=== PATIENT | male | born 1975 | race Caucasian/White ===

== ENCOUNTER → 2017-06-05 | Outpatient (REF) ==
[~2017-06-05] MED LIST: AMLO-1 PO; ASPI-715 PO; ASPI81TA94 PO; DIP25 PO; OMEP-218 PO; PRE20 PO; PROM-110 PO
--- NOTE | 2017-06-05 11:21 | RADIOLOGY IMAGING REPORT ---
FACILITY: [facility] PATIENT NAME: Ta Doherty : 1975 MR: [id number] V: [id number] EXAM DATE: ORDERING PHYSICIAN: JEREMÍAS MEDLEY TECHNOLOGIST: Location: [facility] [place] Patient: Ta Doherty : 1975 Visit/Account:[id number] Date of Sevice: 06/05/2017 ELBOW 3 VIEWS RIGHT HISTORY: Elbow pain COMPARISON: None FINDINGS: No acute fracture or dislocation. No evidence of osteochondral lesion. No joint effusion. N o loose body. Soft tissues are normal. No significant degenerative changes. IMPRESSION: 1. Normal Report Dictated By: Clarke Farnsworth MD at 06/05/2017 11:17 AM Report E-Signed By: Clarke Farnsworth MD at 06/05/2017 11:18 AM WSN:[email or web address]
== END ==
LOC: RAD 09:45
PROVIDERS: ATTEND Nurse Practitioner
DX: M25.521 Pain in right elbow (principal)

== ENCOUNTER 2017-12-09 20:56 | Emergency (ER) | payer SELFPAY ==
[~2017-12-09 20:56] MED LIST changes: -ALBU8.5H IH; -CYCL10TA29 PO; -FLUO-202 PO; -FOLI-68 PO; -HYDR-4225 PO; -HYDR10TA20 PO; -IBUP600T22 PO; -MULT-1379 PO; -NICO-219 BC; -OMEP-125 PO; -THIA100T2 PO; -TRAM-420 PO; -TRAZ150T8 PO
[2017-12-09] MEDS ORDERED: DIPHTH/TETANUS/ACEL. PERTUSSIS IM ONLY ONE (21:05)
[2017-12-09 21:19] LABS: PLATELET COUNT, AUTOMATED 227 K/uL (150-450)
[2017-12-09] MEDS ORDERED: HYDR10TA20 PO (21:26)
[2017-12-09] MEDS ORDERED: FLUO-202 PO (21:26)
[2017-12-09] MEDS ORDERED: OMEP-125 PO (21:26)
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
[2017-12-09] MEDS ORDERED: TRAM-420 PO (23:01)
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
[2017-12-09 23:26] VITALS: BP 132/90
--- NOTE | 2017-12-09 23:26 | EKG ---
FACILITY: [facility] - [place] PATIENT NAME: KRISTIAN JOSHI : [id number] MR: [id number] V: [id number] EXAM DATE: ORDERING PHYSICIAN: DANII MURILLO TECHNOLOGIST: AUBREY Test Reason : TRAUMA Blood Pressure : / mmHG Vent. Rate : 074 BPM Atrial Rate : 074 BPM P-R Int : 166 ms QRS Dur : 094 ms QT Int : 418 ms P-R-T Axes : 039 080 062 degrees QTc Int : 463 ms Sinus rhythm No acute appearing findings When compared with ECG of 24-OCT-2015 23:48, No significant change was found Confirmed by ANDREA CONTE ([id number]) on 12/10/2017 3:21:48 PM Referred By: Confirmed By:ANDREA CONTE
== END 2017-12-09 23:21 | disposition home or self-care (01) ==
LOC: EDUNIT# 20:56 → ER 20:59
DX: S01.81XA Laceration without foreign body of other part of head, initial encounter (principal); F10.920 Alcohol use, unspecified with intoxication, uncomplicated; Y04.8XXA Assault by other bodily force, initial encounter; R51 Headache
CPT/HCPCS: 70450; 71046; 72125; 80320; 80329; 83735; 84443; 85025; 90471; 90715; 93005; 99284; L0172; 82040; 82247; 82310; 82374; 82435; 82565; 82947; 84075; 84132; 84155; 84295; 84450; 84460; 84520

== ENCOUNTER → 2017-12-09 | Outpatient (CLI) | payer SELFPAY ==
[~2017-12-09] MED LIST changes: +ALBU8.5H IH; +CYCL10TA29 PO; +FLUO-202 PO; +FOLI-68 PO; +HYDR-4225 PO; +HYDR10TA20 PO; +IBUP600T22 PO; +MULT-1379 PO; +NICO-219 BC; +OMEP-125 PO; +THIA100T2 PO; +TRAM-420 PO; +TRAZ150T8 PO
== END ==
LOC: AMB 20:33
PROVIDERS: ATTEND Nurse Practitioner
DX: R41.82 Altered mental status, unspecified (principal); M25.519 Pain in unspecified shoulder; R11.0 Nausea; S01.81XA Laceration without foreign body of other part of head, initial encounter; S60.512A Abrasion of left hand, initial encounter; Y04.0XXA Assault by unarmed brawl or fight, initial encounter; Y92.039 Unspecified place in apartment as the place of occurrence of the external cause
CPT/HCPCS: A0425; A0429

== ENCOUNTER 2017-12-20 15:19 | Emergency (ER) | payer SELFPAY ==
[~2017-12-20 15:19] MED LIST changes: +FLUO-202 PO; +HYDR10TA20 PO; +OMEP-125 PO; +TRAM-420 PO
--- NOTE | 2017-12-20 15:28 | ER Report ---
History and Physical Time Seen By MD: 15:27 Hx. of Stated Complaint: PT FEELS HE WAS NOT IN HIS RIGHT MIND THIS MORING AN MAY HAVE TAKEN TOO MUCH FLEXERIL. PT IS ALSO AN ALCOHOLIC. HPI/ROS 42-year-old male known alcoholic presents to the emergency department with report of having mild hallucinations and nightmares over the past few days. He was given Flexeril by the outpatient clinic on Thursday. He has taken multiple doses of Flexeril beyond the prescribed dose. Also states that after drinking daily for 3 weeks he stopped drinking on Thursday morning so that he could take the Flexeril. He states that he feels jittery, anxious, and is worried about his hallucinations and nightmares. He is worried that he overdosed on the Flexeril. No vision changes. No chest pain or shortness of breath. He was sober for approximately 1-1/2 years, and then relapsed 3 weeks ago. He states he doesn 't feel as if he is going through alcohol withdrawal. No fever chills. No abdominal pain, nausea or vomiting. Remainder of the 14 system rev: Yes Allergies: Coded Allergies: No Known Drug Allergies (Verified , 06/26/16) Home Meds Reported Medications Hydroxyzine Hcl (HYDROXYZINE HCL) 25 Mg Tablet, 25 MG PO 12/20/17 Cyclobenzaprine Hcl (CYCLOBENZAPRINE HCL) 10 Mg Tablet, 10 MG PO 3-4XD, #9 TAB 12/20/17 Albuterol Sulfate 90 Mcg/Act (PROAIR HFA 90 MCG/ACT) 8.5 Gm Hfa.aer.ad, 1-2 PUFF IH 3-4XD, INHALER 12/20/17 Omeprazole (OMEPRAZOLE) 20 Mg Capsule.dr, 1 CAP PO QDAY, CAP 12/09/17 Fluoxetine Hcl (PROZAC) 20 Mg Capsule, 20 MG PO QDAY, CAPSULE 12/09/17 Discontinued Reported Medications Hydralazine Hcl (HYDRALAZINE HCL) 10 Mg Tablet, PO QDAY, TAB 12/09/17 Discontinued Scripts Tramadol Hcl (TRAMADOL HCL) 50 Mg Tablet, 50 MG PO Q6H Y for PAIN, #12 TAB 0 Refills Prov:DANII MURILLO DO 12/09/17 Reviewed Nurses Notes: Yes Old Medical Records Reviewed: Yes Hx Smoking: Yes (1/2PPD) Smoking Status: Current: Every Day Smoker Hx Substance Use Disorder: No Hx Alcohol Use: Yes (heavy) Constitutional Vital Sign - Last 24 Hours 12/20/17 12/20/17 12/20/17 12/20/17 15:23 15:24 15:30 15:34 Temp 98.7 Pulse 85 85 Resp 18 25 B/P (MAP) 154/98 (116) 154/98 135/101 (112) Pulse Ox 94 93 O2 Delivery Room Air 12/20/17 12/20/17 12/20/17 12/20/17 15:49 16:00 16:04 16:19 Pulse 83 81 84 Resp 23 24 13 B/P (MAP) 139/112 (121) Pulse Ox 94 94 94 12/20/17 16:23 Pulse 78 Resp 54 Pulse Ox 93 Physical Exam General Appearance: The patient is alert, has no immediate need for airway protection. Eyes: Pupils equal and round no injection. Respiratory: Chest is non tender, lungs are clear to auscultation. Cardiac: regular rate and rhythm Gastrointestinal: Abdomen is soft and non tender, no masses, bowel sounds normal. Extremities have full range of motion and are non tender. Skin: No rashes or lesions. Neuro: Strength and sensation grossly in tact, but he is tremulous with tongue tremor DIFFERENTIAL DIAGNOSIS: After history and physical exam differential diagnosis was considered for alcohol withdrawal, Flexeril overdose, other toxidrome, infection Medical Decision Making Data Points Result Diagram: 12/20/17 1618 12/20/17 1618 Laboratory Hematology Test 12/20/17 16:18 Red Blood Count 4.06 M/uL (4.00-5.60) Mean Corpuscular Volume 97.7 fL (80.0-96.0) Mean Corpuscular Hemoglobin 34.1 pg (26.0-33.0) Mean Corpuscular Hemoglobin Concent 35.0 g/dL (32.0-36.0) Red Cell Distribution Width 14.3 % (11.5-14.5) Mean Platelet Volume 8.1 fL (7.2-11.1) Neutrophils (%) (Auto) 68.2 % (39.4-72.5) Lymphocytes (%) (Auto) 11.0 % (17.6-49.6) Monocytes (%) (Auto) 11.2 % (4.1-12.4) Eosinophils (%) (Auto) 6.8 % (0.4-6.7) Basophils (%) (Auto) 2.8 % (0.3-1.4) Nucleated RBC Relative Count (auto) 0.0 /100WBC Neutrophils # (Auto) 4.1 K/uL (2.0-7.4) Lymphocytes # (Auto) 0.7 K/uL (1.3-3.6) Monocytes # (Auto) 0.7 K/uL (0.3-1.0) Eosinophils # (Auto) 0.4 K/uL (0.0-0.5) Basophils # (Auto) 0.2 K/uL (0.0-0.1) Nucleated RBC Absolute Count (auto) 0.00 K/uL Sodium Level 138 mmol/L (137-145) Potassium Level 4.4 mmol/L (3.5-5.0) Chloride Level 100 mmol/L (98-107) Carbon Dioxide Level 27 mmol/L (22-30) Blood Urea Nitrogen 12 mg/dl (9-21) Creatinine 0.70 mg/dl (0.66-1.25) Glomerular Filtration Rate Calc > 60.0 Random Glucose 116 mg/dl (75-110) Calcium Level 9.6 mg/dl (8.4-10.2) Total Bilirubin 0.4 mg/dl (0.2-1.3) Aspartate Amino Transf (AST/SGOT) 82 U/L (0-35) Alanine Aminotransferase (ALT/SGPT) 64 U/L (0-56) Alkaline Phosphatase 90 U/L (0-126) Total Protein 7.2 g/dl (6.3-8.2) Albumin 4.3 g/dl (3.5-5.0) Serum Alcohol < 10 mg/dl Chemistry Test 12/20/17 16:18 White Blood Count 6.0 k/uL (4.5-11.0) Red Blood Count 4.06 M/uL (4.00-5.60) Hemoglobin 13.8 g/dL (14.0-18.0) Hematocrit 39.6 % (42.0-52.0) Mean Corpuscular Volume 97.7 fL (80.0-96.0) Mean Corpuscular Hemoglobin 34.1 pg (26.0-33.0) Mean Corpuscular Hemoglobin Concent 35.0 g/dL (32.0-36.0) Red Cell Distribution Width 14.3 % (11.5-14.5) Platelet Count 82 K/uL (150-450) Mean Platelet Volume 8.1 fL (7.2-11.1) Neutrophils (%) (Auto) 68.2 % (39.4-72.5) Lymphocytes (%) (Auto) 11.0 % (17.6-49.6) Monocytes (%) (Auto) 11.2 % (4.1-12.4) Eosinophils (%) (Auto) 6.8 % (0.4-6.7) Basophils (%) (Auto) 2.8 % (0.3-1.4) Nucleated RBC Relative Count (auto) 0.0 /100WBC Neutrophils # (Auto) 4.1 K/uL (2.0-7.4) Lymphocytes # (Auto) 0.7 K/uL (1.3-3.6) Monocytes # (Auto) 0.7 K/uL (0.3-1.0) Eosinophils # (Auto) 0.4 K/uL (0.0-0.5) Basophils # (Auto) 0.2 K/uL (0.0-0.1) Nucleated RBC Absolute Count (auto) 0.00 K/uL Glomerular Filtration Rate Calc > 60.0 Calcium Level 9.6 mg/dl (8.4-10.2) Total Bilirubin 0.4 mg/dl (0.2-1.3) Aspartate Amino Transf (AST/SGOT) 82 U/L (0-35) Alanine Aminotransferase (ALT/SGPT) 64 U/L (0-56) Alkaline Phosphatase 90 U/L (0-126) Total Protein 7.2 g/dl (6.3-8.2) Albumin 4.3 g/dl (3.5-5.0) Serum Alcohol < 10 mg/dl Toxicology Test 12/20/17 16:18 Serum Alcohol < 10 mg/dl ED Course/Re-evaluation ED Course 42-year-old female known alcoholic presents to the emergency department with visual hallucinations in the setting of taking more Flexeril and he was prescribed as well as abstaining from alcohol for the last 3 days. He is a daily drinker, and has been drinking daily for 3 weeks straight. He appears to be in alcohol withdrawal clinically. He was given 10 mg of Valium by mouth. An EKG was obtained given his accidental overdose on Flexeril. EKG is within normal limits. He has no other signs of Flexeril toxicity. I think that he is exhibiting clinically is consistent with alcohol withdrawal. I offered him inpatient detox for alcohol, and he refused. He has a ride home, and given he one time had a period of sobriety he says he knows how to get in touch with a support system. Decision to Disposition Date: Dec 20, 2017 Decision to Disposition Time: 17:34 Depart Departure Latest Vital Signs Vital Signs Date Time Temp Pulse Resp B/P (MAP) Pulse Ox O2 Delivery O2 Flow Rate FiO2 12/20/17 16:23 78 54 93 12/20/17 16:00 139/112 (121) 12/20/17 15:24 98.7 Room Air Impression: Primary Impression: Alcohol withdrawal Condition: Improved Disposition: HOME OR SELF-CARE Patient Instructions: Alcohol Withdrawal (ED) Additional Instructions: Do not take any more cyclobenzaprine. Return to the emergency department if you' re interested in inpatient alcohol detox. Problem Qualifiers Primary Impression: Alcohol withdrawal Complication of substance-induced condition: with perceptual disturbance Qualified Codes: F10.232 - Alcohol dependence with withdrawal with perceptual disturbance BELLO REHMAN MD Dec 20, 2017 15:28
[2017-12-20] MEDS ORDERED: ALBU8.5H IH (15:29)
[2017-12-20] MEDS ORDERED: CYCL10TA29 PO (15:30)
[2017-12-20] MEDS ORDERED: HYDR-4225 PO (15:31)
[2017-12-20] MEDS ORDERED: DIAZEPAM 10 MG TAB PO ONE (16:05)
[2017-12-20 16:27] LABS: PLATELET COUNT, AUTOMATED 82 K/uL (150-450)
--- NOTE | 2017-12-20 17:03 | EKG ---
[place] [facility] [place] NAME[place] KRISTIAN JOSHI : [id number] MR: [id number] V: [id number] EXAM DATE: ORDERING PHYSICIAN: BELLO REHMAN TECHNOLOGIST: NIRANJAN Powers Reason : WITHDRAWL Blood Pressure : / mmHG Vent. Rate : 079 BPM Atrial Rate : 079 BPM P-R Int : 164 ms QRS Dur : 088 ms QT Int : 414 ms P-R-T Axes : 070 075 053 degrees QTc Int : 474 ms Normal sinus rhythm Normal ECG When compared with ECG of 09-DEC-2017 21:14, Unchanged Confirmed by DANIS MCGILL ([id number]) on 12/21/2017 6:43:21 AM Referred By: SHERIE Confirmed By:DANIS MCGILL
[2017-12-20 17:30] VITALS: BP 139/114
== END 2017-12-20 17:47 | disposition home or self-care (01) ==
LOC: ER 15:30
DX: F10.232 Alcohol dependence with withdrawal with perceptual disturbance (principal); F17.210 Nicotine dependence, cigarettes, uncomplicated
CPT/HCPCS: 36415; 80320; 82040; 82247; 82310; 82374; 82435; 82565; 82947; 84075; 84132; 84155; 84295; 84450; 84460; 84520; 85025; 93005; 99284

== ENCOUNTER 2017-12-21 08:24 | Emergency (ER) | payer SELFPAY ==
--- NOTE | 2017-12-21 08:19 | ER Report ---
History and Physical Time Seen By MD: 08:40 HPI/ROS CHIEF COMPLAINT: BHS assessment HISTORY OF PRESENT ILLNESS:Electronic medical record was reviewed for this patient he was seen on December 20. Record notes that patient is an alcoholic and had been taking Flexeril beyond prescribed dosage range. At that time he was seen for having some hallucinations and nightmares over the past few days. He states thatafter drinking heavily for the past 3 weeks he stop drinking this past Thursday morning so he can take Flexeril. He is boarded feeling jittery and anxious during that visit. He was given at that time 10 mg of IV Valium for "alcohol withdrawal" he was offered inpatient detox but refused. Electronic medical record was reviewed back to his June. This is the 4th contact in that period of time and all of these contacts are related to alcohol and violence. Additional history is obtained by the police who state that they were called to the [employer] for patient who was using a sledge hammer to break the concrete floor of a second-story apartment because he felt that his son was trapped in the floor. Patient confirms this story and states that he feels that people are trying to track him. He states that this past Thursday he smoked some "marijuana" but felt very bizarre approximately hour afterwards and felt that he was drugged. 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 States that he has been drinking alcohol heavily for the past few weeks but quit this past Thursday in order to take some newly prescribed medications which included cyclobenzaprine. REVIEW OF SYSTEMS: Constitutional: No fever, no chills. Eyes: No discharge. ENT: No sore throat. Cardiovascular: No chest pain, no palpitations. Respiratory: No cough, no shortness of breath. Gastrointestinal: No abdominal pain, no vomiting. Genitourinary: No hematuria. Musculoskeletal: No back pain. Skin: No rashes. Neurological: No headache. Psychiatric: Feels people are trying to track him Allergies: Coded Allergies: No Known Drug Allergies (Verified , 06/26/16) Home Meds Reported Medications Hydroxyzine Hcl (HYDROXYZINE HCL) 25 Mg Tablet, 25 MG PO 12/20/17 Cyclobenzaprine Hcl (CYCLOBENZAPRINE HCL) 10 Mg Tablet, 10 MG PO 3-4XD, #9 TAB 12/20/17 Albuterol Sulfate 90 Mcg/Act (PROAIR HFA 90 MCG/ACT) 8.5 Gm Hfa.aer.ad, 1-2 PUFF IH 3-4XD, INHALER 12/20/17 Omeprazole (OMEPRAZOLE) 20 Mg Capsule.dr, 1 CAP PO QDAY, CAP 12/09/17 Fluoxetine Hcl (PROZAC) 20 Mg Capsule, 20 MG PO QDAY, CAPSULE 12/09/17 Discontinued Reported Medications Hydralazine Hcl (HYDRALAZINE HCL) 10 Mg Tablet, PO QDAY, TAB 12/09/17 Discontinued Scripts Tramadol Hcl (TRAMADOL HCL) 50 Mg Tablet, 50 MG PO Q6H Y for PAIN, #12 TAB 0 Refills Prov:DANII MURILLO Jody DO 12/09/17 Past Medical/Surgical History History of alcohol abuse history of reactive airways disease Hx Smoking: Yes (1/2PPD) Smoking Status: Current: Every Day Smoker Hx Substance Use Disorder: No Hx Alcohol Use: Yes (heavy) Constitutional Vital Sign - Last 24 Hours 12/21/17 12/21/17 12/21/17 12/21/17 08:25 08:30 08:45 08:46 Pulse 92 92 92 Resp 16 B/P (MAP) 140/110 138/101 (113) Pulse Ox 91 89 91 O2 Delivery Room Air 12/21/17 12/21/17 12/21/17 12/21/17 09:00 09:30 09:45 10:00 Pulse 90 87 82 84 B/P (MAP) 130/102 (111) 142/97 (112) 134/94 (107) Pulse Ox 90 91 94 92 12/21/17 10:15 Pulse 89 Pulse Ox 92 Physical Exam General/Constitutional: Patient is awake, alert, nontoxic and in no acute respiratory distress. Patient, cooperative Head: Normocephalic and atraumatic. Eyes: Conjunctival clear, Pupils are equal and reactive to light. Extraocular muscles are intact and symmetrical. Sclera are clear and anicteric. Ears:External canals are clear. Tympanic membranes are clear with normal landmarks and light reflex. Nares: No rhinorrhea or bleeding. Turbinates are pink and moist. Oropharyngeal: Mucous membranes are moist. There is no pharyngeal erythema or exudate. There are no palatal petechiae. Uvula is midline and symmetrical. Neck: Supple, no adenopathy. Cardiovascular: Heart is regular rate and rhythm without audible murmurs, rubs or gallops. Pulmonary: Lungs are clear to auscultation bilaterally. There are no wheezes, rales, or rhonchi. Chest rise is symmetrical Abdomen: Soft, nontender, no guarding or peritoneal signs. Extremities: No gross deformities, No peripheral cyanosis. Able to move all 4 extremities. Neuro: Alert and oriented X3, Cranial nerves 2 thru 12 are intact and symmetrical. Skin: No rashes, skin is warm dry and well perfused. Patient has a slight ecchymosis under the right orbit as well as healing scar to the right side of the face. Psychiatric: Patient cooperative patient noted to have increased psychomotor agitation. Patient does have some pressured speech. Patient having both auditory and visual hallucinations. States that he is hearing his son and seeing his face in the floor. He feels as if people are out to get him. Recent and remote memory are intact. He denies any suicidal or homicidal ideation. Medical Decision Making Data Points Result Diagram: 12/21/17 0818 12/21/17 0818 Laboratory Hematology Test 12/21/17 08:18 12/21/17 09:53 Red Blood Count 4.30 M/uL (4.00-5.60) Mean Corpuscular Volume 98.0 fL (80.0-96.0) Mean Corpuscular Hemoglobin 34.7 pg (26.0-33.0) Mean Corpuscular Hemoglobin Concent 35.4 g/dL (32.0-36.0) Red Cell Distribution Width 13.8 % (11.5-14.5) Mean Platelet Volume 7.9 fL (7.2-11.1) Neutrophils (%) (Auto) 70.0 % (39.4-72.5) Lymphocytes (%) (Auto) 12.5 % (17.6-49.6) Monocytes (%) (Auto) 11.1 % (4.1-12.4) Eosinophils (%) (Auto) 5.9 % (0.4-6.7) Basophils (%) (Auto) 0.5 % (0.3-1.4) Nucleated RBC Relative Count (auto) 0.1 /100WBC Neutrophils # (Auto) 5.2 K/uL (2.0-7.4) Lymphocytes # (Auto) 0.9 K/uL (1.3-3.6) Monocytes # (Auto) 0.8 K/uL (0.3-1.0) Eosinophils # (Auto) 0.4 K/uL (0.0-0.5) Basophils # (Auto) 0.0 K/uL (0.0-0.1) Nucleated RBC Absolute Count (auto) 0.01 K/uL Sodium Level 138 mmol/L (137-145) Potassium Level 4.0 mmol/L (3.5-5.0) Chloride Level 98 mmol/L (98-107) Carbon Dioxide Level 24 mmol/L (22-30) Blood Urea Nitrogen 12 mg/dl (9-21) Creatinine 0.70 mg/dl (0.66-1.25) Glomerular Filtration Rate Calc > 60.0 Random Glucose 111 mg/dl (75-110) Calcium Level 10.6 mg/dl (8.4-10.2) Magnesium Level 1.2 mg/dl (1.7-2.2) Total Bilirubin 0.6 mg/dl (0.2-1.3) Aspartate Amino Transf (AST/SGOT) 102 U/L (0-35) Alanine Aminotransferase (ALT/SGPT) 82 U/L (0-56) Alkaline Phosphatase 93 U/L (0-126) Total Protein 8.4 g/dl (6.3-8.2) Albumin 4.9 g/dl (3.5-5.0) Salicylates Level < 10 mg/L Salicylate Last Dose Date unk Acetaminophen Level < 10 ug/ml Serum Alcohol < 10 mg/dl Urine Color Straw Urine Clarity Clear Urine pH 7.0 pH (4.8-9.5) Urine Specific [place] 1.006 Urine Protein Negative mg/dL (NEGATIVE) Urine Glucose (UA) Negative mg/dL (NEGATIVE) Urine Ketones Negative mg/dL (NEGATIVE) Urine Blood Negative (NEGATIVE) Urine Nitrite Negative (NEGATIVE) Urine Bilirubin Negative (NEGATIVE) Urine Urobilinogen Negative mg/dL (0.2-1.9) Urine Leukocyte Esterase Negative (NEGATIVE) Urine RBC <1 /HPF (0-2/HPF) Urine WBC <1 /HPF (0-5/HPF) Urine Squamous Epithelial Cells None /LPF (</=FEW) Urine Bacteria Negative /HPF (NONE-FEW) Urine Hyaline Casts Few /LPF (NONE-FEW) Urine Mucus Few /HPF (NONE-FEW) Urine Opiates Screen Negative Urine Barbiturates Screen Negative Ur Tricyclic Antidepressants Screen Negative Urine Phencyclidine Screen Negative Urine Amphetamines Screen Negative Urine Benzodiazepines Screen Negative Urine Cocaine Screen Negative Urine Cannabinoids Screen Positive Chemistry Test 12/21/17 08:18 12/21/17 09:53 White Blood Count 7.4 k/uL (4.5-11.0) Red Blood Count 4.30 M/uL (4.00-5.60) Hemoglobin 14.9 g/dL (14.0-18.0) Hematocrit 42.2 % (42.0-52.0) Mean Corpuscular Volume 98.0 fL (80.0-96.0) Mean Corpuscular Hemoglobin 34.7 pg (26.0-33.0) Mean Corpuscular Hemoglobin Concent 35.4 g/dL (32.0-36.0) Red Cell Distribution Width 13.8 % (11.5-14.5) Platelet Count 105 K/uL (150-450) Mean Platelet Volume 7.9 fL (7.2-11.1) Neutrophils (%) (Auto) 70.0 % (39.4-72.5) Lymphocytes (%) (Auto) 12.5 % (17.6-49.6) Monocytes (%) (Auto) 11.1 % (4.1-12.4) Eosinophils (%) (Auto) 5.9 % (0.4-6.7) Basophils (%) (Auto) 0.5 % (0.3-1.4) Nucleated RBC Relative Count (auto) 0.1 /100WBC Neutrophils # (Auto) 5.2 K/uL (2.0-7.4) Lymphocytes # (Auto) 0.9 K/uL (1.3-3.6) Monocytes # (Auto) 0.8 K/uL (0.3-1.0) Eosinophils # (Auto) 0.4 K/uL (0.0-0.5) Basophils # (Auto) 0.0 K/uL (0.0-0.1) Nucleated RBC Absolute Count (auto) 0.01 K/uL Glomerular Filtration Rate Calc > 60.0 Calcium Level 10.6 mg/dl (8.4-10.2) Magnesium Level 1.2 mg/dl (1.7-2.2) Total Bilirubin 0.6 mg/dl (0.2-1.3) Aspartate Amino Transf (AST/SGOT) 102 U/L (0-35) Alanine Aminotransferase (ALT/SGPT) 82 U/L (0-56) Alkaline Phosphatase 93 U/L (0-126) Total Protein 8.4 g/dl (6.3-8.2) Albumin 4.9 g/dl (3.5-5.0) Salicylates Level < 10 mg/L Salicylate Last Dose Date unk Acetaminophen Level < 10 ug/ml Serum Alcohol < 10 mg/dl Urine Color Straw Urine Clarity Clear Urine pH 7.0 pH (4.8-9.5) Urine Specific [place] 1.006 Urine Protein Negative mg/dL (NEGATIVE) Urine Glucose (UA) Negative mg/dL (NEGATIVE) Urine Ketones Negative mg/dL (NEGATIVE) Urine Blood Negative (NEGATIVE) Urine Nitrite Negative (NEGATIVE) Urine Bilirubin Negative (NEGATIVE) Urine Urobilinogen Negative mg/dL (0.2-1.9) Urine Leukocyte Esterase Negative (NEGATIVE) Urine RBC <1 /HPF (0-2/HPF) Urine WBC <1 /HPF (0-5/HPF) Urine Squamous Epithelial Cells None /LPF (</=FEW) Urine Bacteria Negative /HPF (NONE-FEW) Urine Hyaline Casts Few /LPF (NONE-FEW) Urine Mucus Few /HPF (NONE-FEW) Urine Opiates Screen Negative Urine Barbiturates Screen Negative Ur Tricyclic Antidepressants Screen Negative Urine Phencyclidine Screen Negative Urine Amphetamines Screen Negative Urine Benzodiazepines Screen Negative Urine Cocaine Screen Negative Urine Cannabinoids Screen Positive Toxicology Test 12/21/17 08:18 12/21/17 09:53 Salicylates Level < 10 mg/L Salicylate Last Dose Date unk Acetaminophen Level < 10 ug/ml Serum Alcohol < 10 mg/dl Urine Opiates Screen Negative Urine Barbiturates Screen Negative Ur Tricyclic Antidepressants Screen Negative Urine Phencyclidine Screen Negative Urine Amphetamines Screen Negative Urine Benzodiazepines Screen Negative Urine Cocaine Screen Negative Urine Cannabinoids Screen Positive Urinalysis Test 12/21/17 09:53 Urine Color Straw Urine Clarity Clear Urine pH 7.0 pH (4.8-9.5) Urine Specific [place] 1.006 Urine Protein Negative mg/dL (NEGATIVE) Urine Glucose (UA) Negative mg/dL (NEGATIVE) Urine Ketones Negative mg/dL (NEGATIVE) Urine Blood Negative (NEGATIVE) Urine Nitrite Negative (NEGATIVE) Urine Bilirubin Negative (NEGATIVE) Urine Urobilinogen Negative mg/dL (0.2-1.9) Urine Leukocyte Esterase Negative (NEGATIVE) Urine RBC <1 /HPF (0-2/HPF) Urine WBC <1 /HPF (0-5/HPF) Urine Squamous Epithelial Cells None /LPF (</=FEW) Urine Bacteria Negative /HPF (NONE-FEW) Urine Hyaline Casts Few /LPF (NONE-FEW) Urine Mucus Few /HPF (NONE-FEW) EKG/Imaging EKG Interpretation EKG shows normal sinus rhythm with a ventricular rate of 86 bpm. On exam heart rate would go into the low 100s. Patient was hypertensive with a blood pressure 140/100. Patient also noticed to have shaking and tremulousness. Believe patient may be suffering from symptoms of alcohol withdrawal along with potential toxic effects of both prescription and nonprescription medications. Patient did have a history of head injury of December 09 but did not have any imaging performed. We will image the head, C-spine and facial bones at this time. We will perform a mental health screening exam. I did discuss with the patient the idea that he should come in for treatment of alcohol and also to discuss the feelings that other people are out to get him. At this time he is agreeable and cooperative. I will give 5 mg of IV Valium for what appears to be acute alcohol withdrawal. Monitor Interpretation: Normal Sinus Rhythm ED Course/Re-evaluation Clinical Indication for ER IV: Hydration, IV Access ED Course 12/21/2017 10:47:20 am suspect patient with acute alcohol withdrawal however I do believe there could be an underlying psychiatric component as patient has never been evaluated psychiatrically before. He is agreeable to staying and did discuss the case with history physical exam pertinent lab data and imaging studies were reviewed. He is agreed to take the patient to the floor for alcohol detox and further evaluation. I explained this to the patient and he is agreeable to admission at this time. Decision to Disposition Date: Dec 21, 2017 Decision to Disposition Time: 10:48 Depart Departure Latest Vital Signs Vital Signs Date Time Temp Pulse Resp B/P (MAP) Pulse Ox O2 Delivery O2 Flow Rate FiO2 12/21/17 10:15 89 92 12/21/17 10:00 134/94 (107) 12/21/17 08:25 16 Room Air Impression: Primary Impression: Alcohol withdrawal Condition: Condition Unchanged Disposition: XFER TO [facility] (to Dr Vásquez) Problem Qualifiers Primary Impression: Alcohol withdrawal Complication of substance-induced condition: with delirium Qualified Codes: F10.231 - Alcohol dependence with withdrawal delirium JOSR BRAXTON MD Dec 21, 2017 08:19
[~2017-12-21 08:24] MED LIST changes: -FOLI-68 PO; -IBUP600T22 PO; -MULT-1379 PO; -NICO-219 BC; -THIA100T2 PO; -TRAZ150T8 PO
[2017-12-21] MEDS ORDERED: THIAMINE HCL(*) 200 MG/2 ML IN 100 MG, FOLIC ACID(*) 50 MG/10 ML INJ 1 MG, MULTIVITAMIN... IV ONE (08:30)
[2017-12-21 08:40] LABS: PLATELET COUNT, AUTOMATED 105 K/uL (150-450)
--- NOTE | 2017-12-21 08:40 | EKG ---
[place] [facility] [place] NAME: KRISTIAN JOSHI : [id number] MR: [id number] V: [id number] EXAM DATE: ORDERING PHYSICIAN: JOSR BRAXTON TECHNOLOGIST: VIANNEY Powers Reason : AMS Blood Pressure : / mmHG Vent. Rate : 086 BPM Atrial Rate : 086 BPM P-R Int : 162 ms QRS Dur : 098 ms QT Int : 382 ms P-R-T Axes : 067 061 051 degrees QTc Int : 457 ms Normal sinus rhythm Normal ECG When compared with ECG of 20-DEC-2017 16:22, No significant change was found Confirmed by TRES NUNES ([id number]) on 12/21/2017 9:55:56 AM Referred By: FOX Confirmed By:TRES NUNES
[2017-12-21] MEDS ORDERED: DIAZEPAM 50 MG/10 ML MDV IVP ONE (08:45)
--- NOTE | 2017-12-21 09:58 | RADIOLOGY IMAGING REPORT ---
FACILITY: [facility] [place] PATIENT NAME: Ta Doherty : 1975 MR: [id number] V: [id number] EXAM DATE: ORDERING PHYSICIAN: JOSR BRAXTON TECHNOLOGIST: [facility] Patient: Ta Doherty : 1975 Visit/Account:[id number] Date of Sevice: 12/21/2017 EXAMINATION: CT head without IV contrast HISTORY: Trauma. COMPARISON: CT head from 12/09/2017. TECHNIQUE: Contiguous axial images were obtained from the skull base to the vertex without intraven ous contrast. Sagittal and coronal reformatted images are also submitted. One of the following dose optimization techniques was utilized in the performance of this exam: Autom ated exposure control; adjustment of the mA and/or kV according to the patient's size; or use of an i terative reconstruction technique. Specific details can be referenced in the facility's radiology C T exam operational policy. FINDINGS: Brain volume: Normal. Ventricles: Normal. Acute ischemic changes: None. Hemorrhage: No acute intracranial hemorrhage. Masses/edema: None. Diggs-white: Negative. White matter: Normal. Vessels: Negative. Extra-axial: Negative. Calvarium/scalp: No acute fracture. Skull base/visualized face: Negative. Visualized sinuses/orbits: Mild mucosal thickening in the bilateral ethmoid air cells. No air-fluid levels. IMPRESSION: 1. No acute fracture, hemorrhage or intracranial mass lesion. No CT evidence of acute infarct. 2. Mild nonobstructive inflammation of the bilateral ethmoid air cells. Report Dictated By: Steff Warner MD at 12/21/2017 9:49 AM Report E-Signed By: Steff Warner MD at 12/21/2017 9:52 AM WSN:[id number]
--- NOTE | 2017-12-21 10:00 | RADIOLOGY IMAGING REPORT ---
FACILITY: [facility] [place] PATIENT NAME: Ta Doherty : 1975 MR: [id number] V: [id number] EXAM DATE: ORDERING PHYSICIAN: JOSR BRAXTON TECHNOLOGIST: [place] [facility] [place] Do[place] : 1975 Visit/Account:[id number] Date of Sevice: 12/21/2017 EXAMINATION: CT cervical spine without IV contrast HISTORY: Trauma. COMPARISON: CT of the cervical spine from 12/09/2017. TECHNIQUE: Axial images were obtained from the skull base through the upper thoracic spine without I V contrast administration. Coronal and sagittal reformatted images were obtained from the axial [facility] e data. One of the following dose optimization techniques was utilized in the performance of this exam: Autom ated exposure control; adjustment of the mA and/or kV according to the patient's size; or use of an i terative reconstruction technique. Specific details can be referenced in the facility's radiology C T exam operational policy. FINDINGS: Alignment: Straightening of the cervical spine without focal listhesis. Cranio-cervical junction: Negative. Vertebral bodies: Negative. Posterior elements: Mild uncovertebral hypertrophy at a few levels. Corticated bone fragment adjacen t to the T1 spinous process tip. Hardware: None. Disc spaces: Mild bony spurring at a few levels without significant disc space narrowing. Soft tissues: Negative. Visualized upper chest: Negative. IMPRESSION: 1. No acute fracture of the cervical spine. 2. Mild degenerative bony spurring and uncovertebral arthropathy, unchanged. 3. Straightening of the cervical spine could be positional, related to muscle spasm or a cervical co llar. Report Dictated By: Steff Warner MD at 12/21/2017 9:52 AM Report E-Signed By: Steff Warner MD at 12/21/2017 9:55 AM WSN:[id number]
--- NOTE | 2017-12-21 10:03 | RADIOLOGY IMAGING REPORT ---
FACILITY: [facility] PATIENT NAME: Ta Doherty : 1975 MR: [id number] V: [id number] EXAM DATE: ORDERING PHYSICIAN: JOSR BRAXTON TECHNOLOGIST: Location: [facility] Patient: Ta Doherty : 1975 Visit/Account:[id number] Date of Sevice: 12/21/2017 EXAMINATION: CT facial bones without IV contrast HISTORY: Trauma. COMPARISON: None. TECHNIQUE: Axial images were obtained from the superior aspect of the orbits through the inferior as pect of mandible. Coronal and sagittal reformatted images were obtained from the axial source data. N o IV contrast was administered. One of the following dose optimization techniques was utilized in the performance of this exam: Autom ated exposure control; adjustment of the mA and/or kV according to the patient's size; or use of an i terative reconstruction technique. Specific details can be referenced in the facility's radiology C T exam operational policy. FINDINGS: Soft Tissues: Negative. Mandible/TMJ: Negative. Maxilla/pterygoid plates: Negative. Zygoma/zygomatic arches: Negative. Orbits: Negative. Nasal bones/nasal septum: Negative. Frontal bones: Negative. Sinuses: Mild mucosal thickening in the bilateral ethmoid air cells. No air-fluid levels. Visualized brain: Negative. IMPRESSION: No acute facial bone fracture. Report Dictated By: Steff Warner MD at 12/21/2017 9:56 AM Report E-Signed By: Steff Warner MD at 12/21/2017 9:58 AM WSN:[id number]
[2017-12-21 10:30] VITALS: BP 142/118
[2017-12-22] MEDS ORDERED: FOLI-68 PO (11:00)
[2017-12-22] MEDS ORDERED: MULT-1379 PO (11:01)
[2017-12-22] MEDS ORDERED: THIA100T2 PO (11:02)
[2017-12-22] MEDS ORDERED: IBUP600T22 PO (11:03)
[2017-12-22] MEDS ORDERED: NICO-219 BC (11:04)
[2017-12-22] MEDS ORDERED: TRAZ150T8 PO (11:05)
== END 2017-12-21 11:35 ==
LOC: ER 08:29
DX: F10.231 Alcohol dependence with withdrawal delirium (principal); R41.82 Altered mental status, unspecified; J45.909 Unspecified asthma, uncomplicated; F17.200 Nicotine dependence, unspecified, uncomplicated; R25.1 Tremor, unspecified
CPT/HCPCS: 70450; 70486; 72125; 80305; 80320; 80329; 81001; 83735; 84443; 85025; 93005; 96365; 96366; 96375; 99284; J3360; J3411; J3475; J7030; 82040; 82247; 82310; 82374; 82435; 82565; 82947; 84075; 84132; 84155; 84295; 84450; 84460; 84520

== ENCOUNTER 2017-12-21 11:14 | Inpatient (IN) | payer SELFPAY ==
[~2017-12-21] VITALS: Ht 177.8 cm; Wt 81.6 kg
[2017-12-21] MEDS ORDERED: DIAZEPAM 10 MG TAB PO PRN ×2 (12:10→12:20)
[2017-12-21] MEDS ORDERED: MAG HYD/AL HYD/SIMETH 30ML UDC PO PRN (12:10)
[2017-12-21] MEDS: ALBUTEROL 8 GM INHALER INH PRN ×2 (12:23→18:13)
[2017-12-21] MEDS: NICOTINE POLACRILEX 2 MG GUM PO PRN ×2 (13:05→18:31)
[2017-12-21] MEDS: IBUPROFEN 600 MG TAB PO PRN ×2 (13:05→18:13)
[2017-12-21 13:52] VITALS: BP 122/95
[2017-12-21 16:38] VITALS: BP 138/94
[2017-12-21 19:20] VITALS: BP 124/92
[2017-12-22 05:30] VITALS: BP 123/91
[2017-12-22] MEDS ORDERED: MULTIVITAMINS PO SCH (09:00)
[2017-12-22] MEDS ORDERED: THIAMINE HCL 100 MG TAB PO SCH (09:00)
[2017-12-22] MEDS ORDERED: FOLIC ACID 1 MG TAB PO SCH (09:00)
[2017-12-22 09:35] VITALS: BP 124/88
[2017-12-22] MEDS: NICOTINE POLACRILEX 2 MG GUM PO PRN (09:41)
[2017-12-22] MEDS: IBUPROFEN 600 MG TAB PO PRN (09:41)
[2017-12-22] MEDS ORDERED: PANTOPRAZOLE SOD 40 MG TABEC PO SCH (09:55)
[2017-12-22] MEDS ORDERED: ALBUTEROL 8 GM INHALER INH PRN (09:55)
[2017-12-22] MEDS ORDERED: FLUoxetine HCL 20 MG CAP PO SCH (09:55)
[2017-12-22] MEDS ORDERED: hydrOXYzine PAMOATE 25 MG CAP PO PRN (09:55)
[2017-12-22] MEDS ORDERED: hydrOXYzine 25 MG TAB PO PRN (10:15)
[2017-12-22] MEDS ORDERED: FOLI-68 PO (11:00)
[2017-12-22] MEDS ORDERED: MULT-1379 PO (11:01)
[2017-12-22] MEDS ORDERED: THIA100T2 PO (11:02)
[2017-12-22] MEDS ORDERED: IBUP600T22 PO (11:03)
[2017-12-22] MEDS ORDERED: NICO-219 BC (11:04)
[2017-12-22] MEDS ORDERED: TRAZ150T8 PO (11:05)
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
[2017-12-22] MEDS ORDERED: traZODone HCL 50 MG TAB PO SCH (21:00)
== END 2017-12-22 13:35 | disposition home or self-care (01) | DRG 897 ==
LOC: BHS 11:14
PROVIDERS: ADMIT Psychiatry & Neurology Psychiatry; ATTEND Psychiatry & Neurology Psychiatry
DX: F10.231 Alcohol dependence with withdrawal delirium (principal); F12.10 Cannabis abuse, uncomplicated; F15.159 Other stimulant abuse with stimulant-induced psychotic disorder, unspecified; F43.12 Post-traumatic stress disorder, chronic; J44.9 Chronic obstructive pulmonary disease, unspecified; Y90.0 Blood alcohol level of less than 20 mg/100 ml; Z81.8 Family history of other mental and behavioral disorders; Z63.5 Disruption of family by separation and divorce; Z81.1 Family history of alcohol abuse and dependence
CPT/HCPCS: 94640; J3535

== ENCOUNTER → 2017-12-21 | Outpatient (CLI) | payer SELFPAY ==
[~2017-12-21] MED LIST changes: +ALBU8.5H IH; +CYCL10TA29 PO; +FOLI-68 PO; +HYDR-4225 PO; +IBUP600T22 PO; +MULT-1379 PO; +NICO-219 BC; +THIA100T2 PO; +TRAZ150T8 PO
== END ==
LOC: AMB 07:54
PROVIDERS: ATTEND Nurse Practitioner
DX: R44.0 Auditory hallucinations (principal); R44.1 Visual hallucinations; Z72.89 Other problems related to lifestyle
CPT/HCPCS: A0425; A0427

== ENCOUNTER 2018-03-23 12:08 | Emergency (ER) | payer SELFPAY ==
[~2018-03-23 12:08] MED LIST changes: +FOLI-68 PO; +IBUP600T22 PO; +MULT-1379 PO; +NICO-219 BC; +THIA100T2 PO; +TRAZ150T8 PO
[2018-03-23] MEDS ORDERED: OMEP-125 PO (12:15)
[2018-03-23] MEDS ORDERED: ALB6.7R INH (12:15)
[2018-03-23] MEDS ORDERED: FLUO40CA76 PO (12:15)
--- NOTE | 2018-03-23 12:22 | ER Report ---
History and Physical Time Seen By MD: 12:19 Hx. of Stated Complaint: PRISON CLEARANCE, [employer] HERE . PT SAES HOMELESS ND DRUNK HPI/ROS CHIEF COMPLAINT: Assisted clearance HISTORY OF PRESENT ILLNESS: This is a 42-year-old male who presents to the emergency department in the custody of the [place] [employer] for a longterm clearance. According to the police the patient was found lying down on the ground, a bystander called, the police picked him up, he did wake immediately upon their arrival. Patient is in handcuffs. He is cooperative, making good eye contact. Clear speech though he does state that he is been drinking alcohol, he states he does this regularly. States his last drink was probably 4 hours ago. Patient denies any injuries, no nausea or vomiting. No chest pain or shortness of breath. Patient is alert and oriented 4. GCS of 15. REVIEW OF SYSTEMS: Constitutional: No fever, no chills. Eyes: No discharge. ENT: No sore throat. Cardiovascular: No chest pain, no palpitations. Respiratory: No cough, no shortness of breath. Gastrointestinal: No abdominal pain, no vomiting. Genitourinary: No hematuria. Musculoskeletal: No back pain. Skin: No rashes. Neurological: No headache. Allergies: Coded Allergies: No Known Drug Allergies (Verified , 06/26/16) Home Meds Reported Medications Omeprazole (OMEPRAZOLE) 20 Mg Capsule.dr, 1 CAP PO BID, CAP 03/23/18 Albuterol Sulfate (PROVENTIL HFA) 6.7 Gm Inh, 1-2 PUFF INH 3-4XD, INH 03/23/18 Fluoxetine Hcl (PROZAC) 40 Mg Capsule, 50 MG PO QDAY, CAPSULE 03/23/18 Trazodone Hcl (TRAZODONE HCL) 150 Mg Tablet, 50-150 MG PO QHS PRN for INSOMNIA TAKE ABOUT AN HOUR BEFORE YOU PLAN TO GO TO SLEEP. 12/22/17 Nicotine Polacrilex (NICORETTE) 2 Mg Gum, 2 MG BC Q1-2H PRN for NICOTINE REPLACEMENT, GUM 12/22/17 Ibuprofen (IBUPROFEN) 600 Mg Tablet, 1 TAB PO Q6H PRN for PAIN, TAB 12/22/17 Thiamine Mononitrate (VITAMIN B-1) 100 Mg Tablet, 100 MG PO QDAY 12/22/17 Multivits,Th W-Fe,Other Min (THERA-M) 1 Each Tablet, 1 EACH PO QDAY 12/22/17 Folic Acid (FOLIC ACID) 1 Mg Tablet, 1 MG PO QDAY, TAB 12/22/17 Hydroxyzine Hcl (HYDROXYZINE HCL) 25 Mg Tablet, 25-50 MG PO PRN for ITCHIN G/ANXIETY VISTARIL 12/20/17 Albuterol Sulfate 90 Mcg/Act (PROAIR HFA 90 MCG/ACT) 8.5 Gm Hfa.aer.ad, 1-2 PUFF IH 3-4XD, INHALER 12/20/17 Omeprazole (OMEPRAZOLE) 20 Mg Capsule.dr, 1 CAP PO QDAY, CAP 12/09/17 Fluoxetine Hcl (PROZAC) 20 Mg Capsule, 20 MG PO QDAY, CAPSULE 12/09/17 Past Medical/Surgical History The patient has a past medical and surgical history of hernia repair, a call intoxication, right knee surgery. Reviewed Nurses Notes: Yes Hx Smoking: Yes Smoking Status: Current: Every Day Smoker, Light Tobacco Smoker Exposure to Second Hand Smoke?: No Hx Substance Use Disorder: No Hx Alcohol Use: Yes (1/5 DAILY) Constitutional Vital Sign - Last 24 Hours 03/23/18 03/23/18 12:09 12:45 Temp 98.4 Pulse 81 Resp 20 B/P (MAP) 137/104 150/109 (123) Pulse Ox 93 O2 Delivery Room Air Physical Exam General Appearance: The patient is alert, has no immediate need for airway protection and no signs of toxicity. Eyes: Pupils equal and round no pallor or injection. ENT, Mouth: Mucous membranes are moist. Respiratory: There are no retractions, lungs are clear to auscultation. Cardiovascular: Regular rate and rhythm. Gastrointestinal: Abdomen is soft and non tender, no masses, bowel sounds normal. Neurological: Alert and oriented 4. Moving all extremities. Following all commands. No focal neuro deficits. GCS of 15. Skin: Warm and dry, no rashes. Musculoskeletal: Neck is supple non tender. Extremities are nontender, nonswollen and have full range of motion. DIFFERENTIAL DIAGNOSIS: After history and physical exam differential diagnosis was considered for alcohol intoxication. Medical Decision Making ED Course/Re-evaluation ED Course The patient was admitted to room. A history and physical were obtained. Differential diagnoses were considered. After discussion with patient, he denies injuries, no recent falls or traumatic events. Patient does understand that he is going to longterm. Patient states he does drink alcohol on a semi-routine basis. The patient is now homeless, apparently he was in his son's house however due to his alcohol consumption last night his son said that he was unable to take him back into his home. The patient had no other questions or concerns at this time and was discharged in the custody of the [place] [employer] where he will be going to the longterm center. Decision to Disposition Date: Mar 23, 2018 Decision to Disposition Time: 12:30 Depart Departure Latest Vital Signs Vital Signs Date Time Temp Pulse Resp B/P (MAP) Pulse Ox O2 Delivery O2 Flow Rate FiO2 03/23/18 12:45 150/109 (123) 03/23/18 12:09 98.4 81 20 93 Room Air Impression: Primary Impression: Alcohol intoxication Condition: Improved Disposition: [facility] TO PRISON/CORRECTIONAL F Patient Instructions: Abuse of Alcohol (ED), Alcohol Intoxication (ED) Additional Instructions: I strongly advise you to talk with the nursing staff at the longterm center to see if they can help facilitate some retirement treatment of your alcohol consumption. Drink plenty of water. Get plenty of rest. Return to the ED for any other concerns or worsening symptoms. Problem Qualifiers Primary Impression: Alcohol intoxication Complication of substance-induced condition: uncomplicated Qualified Codes: F10.920 - Alcohol use, unspecified with intoxication, uncomplicated CALVIN ROBINS [employer]-BC Mar 23, 2018 12:22
[2018-03-23 12:45] VITALS: BP 150/109
== END 2018-03-23 12:50 ==
LOC: EDUNIT# 12:08 → ER 12:21
DX: F10.920 Alcohol use, unspecified with intoxication, uncomplicated (principal)
CPT/HCPCS: 99281